=== PATIENT | male | born 1940 | race Caucasian/White ===

== ENCOUNTER 2016-03-29 10:28 | Outpatient (CLI) | payer OTHER ==
--- NOTE | 2016-03-29 12:39 | DIAGNOSTIC IMAGING REPORT ---
PROCEDURE: MR LUMBAR SPINE W/O CONTRAST INDICATION: LUMBAR FACET ARTHROPATHY TECHNIQUE: Noncontrast T1, T2, and STIR sagittal images. T1 and T2 axial images. COMPARISON: CT lumbar spine 02/10/2014 FINDINGS: Mild dextroconvex scoliosis with moderate degenerative changes, most prominent at L2-3 with fatty endplate degenerative changes. There is multilevel disc degeneration and bulging. No fracture or suspicious osseous lesions. Normal conus. Paraspinal soft tissues are normal. L1-2: Normal appearance. L2-3: Moderate left foraminal/lateral disc protrusion/spur complex with facet arthropathy resulting in moderate left foraminal stenosis. There is no spinal stenosis . L3-4: Mild bilateral foraminal disc bulging/spur complex and facet arthropathy. There is moderate bilateral foraminal stenosis. No spinal stenosis. L4-5: Moderate right foraminal disc protrusion/spur complex and moderate facet arthropathy. There is severe right and mild to moderate left foraminal stenosis. No spinal stenosis. L5-S1: Moderate broad-based disc bulge/spur complex and mild facet arthropathy. There is bilateral mild to moderate bilateral foraminal stenosis. No spinal stenosis. IMPRESSION: 1. Moderate degenerative changes with multilevel disc bulging and mild dextroscoliosis 2. Moderate left L2-3 and moderate bilateral L3-4 foraminal stenosis 3. L4-5 right foraminal disc protrusion with severe right and mild to moderate left foraminal stenosis 4. Mild to moderate bilateral L5-S1 foraminal stenosis
== END 2016-03-29 23:00 ==
LOC: MRI SRH 10:28
DX: M51.26 Other intervertebral disc displacement, lumbar region (principal); M51.27 Other intervertebral disc displacement, lumbosacral region; M48.06 Spinal stenosis, lumbar region; M48.07 Spinal stenosis, lumbosacral region

== ENCOUNTER 2016-05-10 09:19 | Outpatient (CLI) | payer OTHER ==
--- NOTE | 2016-05-10 10:35 | DIAGNOSTIC IMAGING REPORT ---
PROCEDURE: MR BRAIN WITHOUT CONTRAST INDICATION: ORTHOSTATIC LIGHTHEADEDNESS TECHNIQUE: Multiplanar multisequence MRI imaging of the brain without contrast. COMPARISON: None. FINDINGS: The midline structures are normally formed. The ventricular system is normal in size. Basal cisterns are patent. Flow voids in the major intracranial vessels are normal. There is extensive periventricular small-vessel ischemic disease. No restricted diffusion to suggest acute ischemia. No evidence of acute or chronic intraparenchymal or extra-axial hemorrhage. No mass, mass effect, or midline shift. Normal signal in the visible bones. The sinuses are normally aerated. Visible extracranial soft tissues including the orbits are normal. IMPRESSION: 1. Extensive periventricular small-vessel ischemic disease.
== END 2016-05-10 23:00 ==
LOC: MRI SRH 09:19
DX: R42 Dizziness and giddiness (principal); H93.19 Tinnitus, unspecified ear; H91.90 Unspecified hearing loss, unspecified ear; R41.3 Other amnesia